=== PATIENT | male | born 1960 | race Caucasian/White ===

== ENCOUNTER 2019-11-01 13:15 | Emergency (ER) | payer BC, SELFPAY ==
--- NOTE | ~2019-11-01 | XR_ITS ---
EXAMINATION: XR knee LT min 4V DATE: 11/01/2019 14:17 INDICATION: Left knee pain TECHNIQUE: Four views of the left knee were obtained. COMPARISON: None. FINDINGS: Alignment is normal. No fracture or osteochondral lesion. There is mild tricompartmental os teoarthritis characterized by tiny marginal osteophytes. No joint effusion/synovitis. Soft tissues a re unremarkable. IMPRESSION: 1. No acute osseous abnormality. Reviewed, dictated and finalized at location A.
[2019-11-01 13:32] VITALS: BP 155/96; PULSE 68; RESP 16; TEMP 36.8; O2SAT 98
--- NOTE | 2019-11-01 13:43 | ED.LOWEXIN ---
HPI - Extremity Injury (Lower) General Chief Complaint: Extremity Injury, Lower Stated Complaint: Knee Injury Time Seen by Provider: 11/01/19 13:44 Source: patient and RN notes reviewed Mode of arrival: ambulatory Limitations: no limitations History of Present Illness HPI Narrative: This is a 59 years old male presented office for evaluation of left knee pain for 1 week. Symptom began when he coming off a ladder and felt a twist of his knee. Pain was minimal at first and it progressively getting worse. He works 8 to 10 hours a day on his feet every day. He has tried ibuprofen with minimal relief. Denies direct trauma or injury. Denies history of knee replacement. Admits to history of ankle fracture with plate many years ago. He does not have a primary care doctor. Related Data Allergies Allergy/AdvReac Type Severity Reaction Status Date / Time Penicillins Allergy Unknown Unverified 07/16/14 16:41 Review of Systems Review of Systems: Narrative: CONSTITUTIONAL: Denies fever or feeling ill ENT: Denies congestion CARDIOVASCULAR: Denies chest pain, palpitation RESPIRATORY: Denies dyspnea, cough GASTROINTESTINAL: Denies abdominal pain, nausea, vomiting, diarrhea. SKIN: Denies rash/skin abrasion MUSCULOSKELETAL: Reports left knee pain especially behind his knee cap NEUROLOGIC: Denies lightheaded All other systems reviewed are negative, except as documented in HPI. PMFSH Social History Social History (Updated 11/01/19 @ 13:44 by CHAD Powers) Smoking status: Current every day smoker Comments At time of signature, I agree with nursing past medical, surgical, social and family history. There is no relevant family history pertinent to the presenting complaint. Exam Narrative: Exam Narrative: GENERAL: This is a well-nourished, well-developed patient, in no apparent distress. CARDIOVASCULAR: Regular rate and rhythm without murmurs, gallops, or rubs. RESPIRATORY: Clear to auscultation. Breath sounds equal bilaterally. No wheezes, rales, or rhonchi. GASTROINTESTINAL: Abdomen soft, non-tender, nondistended. Bowel sounds are active. No hepato-splenomegaly, or palpable masses. No guarding. SKIN: warm, intact with no suspicious lesions or rash, good texture and turgor. NEURO: awake, alert, and oriented to person, place and time. There were no obvious focal neurologic abnormalities. Antalgia gait noted. EXTREMITIES: Patient is able to bear weight and ambulate with pain. No surface of trauma or obvious effusion. No overlying erythema or warmth. The R knee is without obvious asymmetry or deformity when comparing to the left. Patient is able to do a deep knee bend with symmetry; however fully extended knee is limited secondary to pain. Nontender to palpate of the patella, no effusion. Nontender over the infrapatellar tendon.. Nontender over the medial or lateral joint line, or medial or lateral tibial plateaus. Nontender over the proximal fibular head. Nontender, fullness, or mass of the popliteal fossa. NO quadriceps tenderness. Distal motor and neurovascular status intact. [place] Scale Eye Opening: Spontaneous 4 [place] Scale Motor: Obeys Commands 6 [place] Scale Verbal: Oriented 5 Course Vital Signs Vital signs: Vital Signs Temperature 98.2 F 11/01/19 13:32 Pulse Rate 68 11/01/19 13:32 Respiratory Rate 16 11/01/19 13:32 Blood Pressure 155/96 H 11/01/19 13:32 Pulse Oximetry 98 11/01/19 13:32 Temperature 98.2 F 11/01/19 13:32 Pulse Rate 68 11/01/19 13:32 Respiratory Rate 16 11/01/19 13:32 Blood Pressure 155/96 H 11/01/19 13:32 Pulse Oximetry 98 11/01/19 13:32 MDM - Extremity Injury (Lower) MDM Narrative Medical decision making narrative: Discharge instructions reviewed with patient, as well as provided in writing per nursing staff. The instructions also include specific and strict return/GO TO THE ER as well as f/u information. All questions have been answered, a
[2019-11-01] MEDS: KETOROLAC (*BKC) 60 MG/2 ML VIAL IM (14:23)
== END 2019-11-01 14:52 | disposition home or self-care (01) ==
PROVIDERS: Emergency Provider Nurse Practitioner
DX: M25.562 Pain in left knee (principal); F17.200 Nicotine dependence, unspecified, uncomplicated
CPT/HCPCS: 73564; 96372; 99213; G0463; J1885